=== PATIENT | male | born 1950 | race Caucasian/White ===

== ENCOUNTER 2023-08-29 05:55 | Day surgery (SDC) | payer OTHER, SELFPAY ==
[2023-07-27 11:09] VITALS: BMI 25.8
[2023-08-17 13:56] VITALS: BMI 25.4
[2023-08-29 06:20] VITALS: BP 126/80; PULSE 72; RESP 16; TEMP 36.6; O2SAT 100; BMI 23.5
[2023-08-29] MEDS: LACTATED RINGERS 1,000 ML 150 ML IV CONT (06:30)
--- NOTE | 2023-08-29 07:07 | PM.HPGS ---
History of Present Illness History of Present Illness Consent: Risks, benefits, and alternatives have been discussed and questions answered. Patient agrees to proceed with procedure. Chief complaint: Ulcerative colitis w/o complications,diarrhea Narrative: Krishna Berman is a 73 year old male presents for colonoscopy. Patient has a history of ulcerative colitis diagnosed many years ago. Initially treated with sulfasalazine. Patient became asymptomatic and stop these medications. Patient experienced a flare recently in March of 2022. Again began to have a a flare in July of 2023. At that time he was restarted on sulfasalazine. He had significant diarrhea with mucus and blood in his stools. This failed to completely resolve was sulfasalazine and budesonide has been added over the last several weeks. Patient currently notices significantly decreased diarrhea. Minimal pain. His bleeding has diminished to a great degree. Pain was today for follow-up surveillance colonoscopy. Most recent colonoscopy was 2017. Family history is noncontributory. Review of Systems Review of Systems: All systems reviewed & are unremarkable except as noted in HPI and below PMFSH Past Medical History Medical History H/O ulcerative colitis Positive colorectal cancer screening using Cologuard test Family History Family History Mother Hypertension Father Hypertension Sibling Hypertension Grandparent Malignant neoplasm of prostate Social History Social History Smoking status: Never smoker Second hand tobacco smoke exposure: No Alcohol intake: current Drinks per week: 4 Alcohol use details: GLASS OF WINE Substance use: never Substance use type: does not use Lack of Transportation: No Lack of Food: Never True Current Housing: I Have Housing Concerned About Future Housing: No Difficulty Paying Gas/Electric Bills: No Difficulty Paying for Meds: No Currently Unemployed: No Education: Bachelor's Degree Difficulty w/ Childcare or Family Care: No Living arrangements: with family Occupation/Education: retired Gender identity (if verbalized by the patient): Male Spiritual care concerns: No Meds Home Medications and Allergies Home Medications Medication Instructions Recorded Confirmed Type fluticasone 250 mcg-salmeterol 50 See Rx Instructions .Route 12/29/22 08/29/23 Rx mcg/dose blistr powdr for .COMPLEX #180 ea inhalation ([employer] In[employer]) folic acid 1 mg tablet 1 mg PO DAILY #90 tabs 07/26/23 08/29/23 Rx sulfasalazine 500 mg tablet 1 g PO TID 30 days #180 tabs 07/26/23 08/29/23 Rx (Azulfidine) budesonide 2 mg/actuation rectal See Rx Instructions RECTAL 08/16/23 08/29/23 Rx foam .COMPLEX #66.8 grams budesonide 3 mg 3 mg PO DAILY 08/17/23 08/29/23 History capsule,delayed,extended release hydrocortisone 100 mg/60 mL enema 1 mg RECTAL BID 08/17/23 08/29/23 History Allergies Allergy/AdvReac Type Severity Reaction Status Date / Time NSAIDS (Non-Steroidal Allergy Severe ANAPHALACTIC Verified 08/29/23 06:04 Anti-Inflamma SHOCK Vital Signs Vital Signs - 24 hr 08/29/23 06:20 Temperature 98 F Pulse Rate 72 Respiratory Rate 16 Blood Pressure 126/80 Pulse Oximetry 100 Oxygen Delivery Room Air Exam Narrative: Cool exam reveals patient to be alert and stable. HEENT exam is unremarkable. Patient is anicteric. Is are clear to auscultation and is without murmur or extra sounds. Abdomen bowel sounds are present soft nontender with no organomegaly. Digital and Rectal exam is normal. Assessment and Plan Assessment and plan (1) Ulcerative colitis: Qualifiers: Ulcerative colitis location: unspecified ulcerative colitis location Digestive disease complication type: with rectal bleeding
--- NOTE | 2023-08-29 07:24 | WPDANESEPPF ---
Anes - Initial Pre Proc Eval Procedure: Operation Date: 08/29/23 07:30 Proposed Procedures p Diagnostic Colonoscopy - Burt Chinchilla MD Date/Time: 08/29/23 07:24 Surgeon: Burt Chinchilla MD Pre Op Diagnosis: Ulcerative colitis w/o complications,diarrhea Patient Data Age: 73 Gender: M Height: 1.73 m Weight: 70.1 kg Last Vital Signs Temp 36.6 C 08/29/23 06:20 Pulse 72 08/29/23 06:20 Resp 16 08/29/23 06:20 BP 126/80 08/29/23 06:20 Pulse Ox 100 08/29/23 06:20 O2 Del Method Room Air 08/29/23 06:20 Allergies Allergy/AdvReac Type Severity Reaction Status Date / Time NSAIDS (Non-Steroidal Allergy Severe ANAPHALACTIC Verified 08/29/23 06:04 Anti-Inflamma SHOCK Home Medications Medication Instructions Recorded Confirmed Type fluticasone 250 mcg-salmeterol 50 See Rx Instructions .Route 12/29/22 08/29/23 Rx mcg/dose blistr powdr for .COMPLEX #180 ea inhalation ([employer] In[employer]) folic acid 1 mg tablet 1 mg PO DAILY #90 tabs 07/26/23 08/29/23 Rx sulfasalazine 500 mg tablet 1 g PO TID 30 days #180 tabs 07/26/23 08/29/23 Rx (Azulfidine) budesonide 2 mg/actuation rectal See Rx Instructions RECTAL 08/16/23 08/29/23 Rx foam .COMPLEX #66.8 grams budesonide 3 mg 3 mg PO DAILY 08/17/23 08/29/23 History capsule,delayed,extended release hydrocortisone 100 mg/60 mL enema 1 mg RECTAL BID 08/17/23 08/29/23 History Patient hx anesthesia problems: none Family hx anesthesia problems: none Results Review: All pre-operative results and documents have been reviewed as part of the pre-operative evaluation. [facility] Past Medical History Medical History H/O ulcerative colitis Positive colorectal cancer screening using Cologuard test Family History Family History Mother Hypertension Father Hypertension Sibling Hypertension Grandparent Malignant neoplasm of prostate Social History Social History Smoking status: Never smoker Second hand tobacco smoke exposure: No Alcohol intake: current Drinks per week: 4 Alcohol use details: GLASS OF WINE Substance use: never Substance use type: does not use Lack of Transportation: No Lack of Food: Never True Current Housing: I Have Housing Concerned About Future Housing: No Difficulty Paying Gas/Electric Bills: No Difficulty Paying for Meds: No Currently Unemployed: No Education: Bachelor's Degree Difficulty w/ Childcare or Family Care: No Living arrangements: with family Occupation/Education: retired Gender identity (if verbalized by the patient): Male Spiritual care concerns: No Anes - Eval Final PreProcedure Day of Procedure 08/29/23 07:24 Patient weight: normal Heart: regular rate and rhythm Lungs: clear to auscultation Airway: Mallampati scale class II Neurological: alert and oriented Last oral intake: >/= 8 hours ASA classification: II Emergent: no Anesthetic plan: proceed Anesthesia type and monitoring: general GIVS and standard monitoring Results Review: All pre-operative results and documents have been reviewed as part of the pre-operative evaluation. Informed Consent: The patient's anesthetic plan and its attendant risks and benefits were discussed with the patient/family/POA. Questions were solicited and answers provided to the satisfaction of the patient/family/POA.
[2023-08-29 07:56] VITALS: BP 100/58; PULSE 62; RESP 16; O2SAT 100
[2023-08-29 08:06] VITALS: BP 106/60; PULSE 64; RESP 16; O2SAT 100
[2023-08-29 08:07] VITALS: BP 98/56; PULSE 77; RESP 16; O2SAT 99
--- NOTE | 2023-08-29 10:10 | WPDANESPN ---
Anes - Prog Note Post-Op Date/Time: 08/29/23 10:10 Cardiovascular status: normal Respiratory status: normal Airway patency: baseline Mental status: baseline Vital Signs: Last Vital Signs Temp 36.6 C 08/29/23 06:20 Pulse 77 08/29/23 08:07 Resp 16 08/29/23 08:07 BP 98/56 L 08/29/23 08:07 Pulse Ox 99 08/29/23 08:07 O2 Del Method Room Air 08/29/23 08:07 Pain Score (VAS): 0/10 I/O: Intake & Output 08/28/23 08/29/23 08/29/23 23:59 07:59 15:59 Intake Total 0 100 Balance 0 100 Patient Feedback: Patient satisfied with anesthetic care.
== END 2023-08-29 08:25 | disposition home or self-care (01) ==
PROVIDERS: PCP Family Medicine Adolescent Medicine; Visit Provider Internal Medicine Gastroenterology
PROC: 0DJD8ZZ Inspection of Lower Intestinal Tract, Via Natural or Artificial Opening Endoscopic (ICD-10-PCS; CPT 45378; principal; 2023-08-29 07:30)
DX: K51.30 Ulcerative (chronic) rectosigmoiditis without complications (principal); K57.30 Diverticulosis of large intestine without perforation or abscess without bleeding
CPT/HCPCS: 45380

== ENCOUNTER 2023-08-29 07:00 | Outpatient (NON) | payer OTHER, SELFPAY | END 2023-08-29 07:01 | disposition home or self-care (01) | LOC: ANHLAB 08-30 08:55 | PROVIDERS: PCP Family Medicine Adolescent Medicine; Visit Provider Internal Medicine Gastroenterology | DX: K51.90 Ulcerative colitis, unspecified, without complications (principal) | CPT/HCPCS: 88305 ==